=== PATIENT | male | born 1970 | race Caucasian/White ===

== ENCOUNTER 2021-06-27 12:40 | Emergency (ER) | payer MEDICAID ==
[~2021-06-27] VITALS: Ht 175.3 cm; Wt 70.1 kg
--- NOTE | 2021-06-27 13:46 | NUR ---
task rn: report to JUNIOR Garzon to assume care of pt.
[2021-06-27] MEDS ORDERED: HYDROmorphone 2 MG/ML, 1ML ONE ×2 (13:47→16:00)
[2021-06-27] MEDS ORDERED: ONDANSETRON 2MG/ML, 2ML ONE (13:47)
[2021-06-27 13:51] LABS: BASOPHILS % (AUTO) 0 % (0-1); EOSINOPHILS % (AUTO) 1 % (1-7); LYMPHOCYTES % (AUTO) 6 % (22-44); MEAN CORPUSCULAR HEMOGLOBIN 31.1 pg (27.5-34.5); MEAN CORPUSCULAR HGB CONC 33.3 g/dL (33.2-36.2); MONOCYTES % (AUTO) 9 % (2-9); NEUTROPHILS % (AUTO) 84 % (42-75); PLATELET COUNT 318 x10^3/uL (130-400)
[2021-06-27 13:58] LABS: ALANINE AMINOTRANSFERASE 80 U/L (12-78); ALBUMIN 2.3 g/dL (3.4-5.0); ANION GAP 10 mmol/L (5-15); CALCIUM 9.1 mg/dL (8.5-10.1); CHLORIDE 100 mmol/L (98-107); CREATININE 1.57 mg/dL (0.7-1.3)
[2021-06-27] MEDS ORDERED: SODIUM CHLORIDE FLUSH 10ML SYR IVF ONE (14:00)
[2021-06-27] MEDS ORDERED: ONDANSETRON 2MG/ML, 2ML IVPush ONE (14:00)
[2021-06-27] MEDS ORDERED: HYDROmorphone 2 MG/ML, 1ML IV ONE ×2 (14:00→16:00)
--- NOTE | 2021-06-27 14:00 | NUR ---
PIV PLACED, LABS HAVE ALREADY BEEN DRAWN BY INSURANCE ASSISTANT. MEDS ADMIN PER JAN. PT CONNECTED TO MONITORING. CALL LIGHT IN REACH.
[2021-06-27 14:01] LABS: ALKALINE PHOSPHATASE 521 U/L (45-117); BILIRUBIN,TOTAL 0.7 mg/dL (0.2-1.0); TOTAL PROTEIN 8.1 g/dL (6.4-8.2)
[2021-06-27] MEDS ORDERED: OMNIPAQUE 350 MG/ML, 100ML BOTTLE ONE (14:33)
--- NOTE | 2021-06-27 14:47 | NUR ---
ALL RESULTS ARE BACK AT THIS TIME. CHART UP FOR RECHECK.
[2021-06-27 16:27] VITALS: BP 117/66
[2021-07-02] MEDS ORDERED: OXYC-380 PO (15:55)
== END 2021-06-27 16:29 | disposition home or self-care (01) ==
LOC: ED 15:07
DX: C78.7 Secondary malignant neoplasm of liver and intrahepatic bile duct (principal); J45.909 Unspecified asthma, uncomplicated; Z86.39 Personal history of other endocrine, nutritional and metabolic disease; Z85.51 Personal history of malignant neoplasm of bladder
CPT/HCPCS: 36415; 74177; 80053; 83690; 85025; 96374; 96375; 96376; 99285; J1170; J2405; Q9967

== ENCOUNTER 2021-07-02 09:46 | Inpatient (IN) | payer MEDICAID ==
[~2021-07-02] VITALS: Ht 175.3 cm; Wt 75.2 kg
--- NOTE | 2021-07-02 10:06 | NUR ---
THIS IS A 51 YEAR OLD MALE WHO C/O OF SEVERE ABD PAIN, N/V. PT HAS A HX OF LIVER CA, AND BLADDER CA.
[2021-07-02] MEDS ORDERED: HYDROmorphone 2 MG/ML, 1ML ONE ×3 (10:09→14:50)
[2021-07-02] MEDS ORDERED: ONDANSETRON 2MG/ML, 2ML ONE ×2 (10:10→15:13)
--- NOTE | 2021-07-02 10:18 | NUR ---
MEDICATED PER ORDERS, PAIN 08/14
[2021-07-02] MEDS ORDERED: SODIUM CHLORIDE FLUSH 10ML SYR IVF ONE (10:30)
[2021-07-02] MEDS ORDERED: SODIUM CHLORIDE 0.9% 1,000 ML IV ONE (10:30)
[2021-07-02] MEDS ORDERED: ONDANSETRON 2MG/ML, 2ML IVPush ONE (10:30)
[2021-07-02] MEDS ORDERED: HYDROmorphone 1 MG/ML, 1ML INJ IV ONE ×3 (10:30→15:00)
[2021-07-02 10:34] LABS: BASOPHILS % (AUTO) 1 % (0-1); EOSINOPHILS % (AUTO) 4 % (1-7); LYMPHOCYTES % (AUTO) 5 % (22-44); MEAN CORPUSCULAR HEMOGLOBIN 31.3 pg (27.5-34.5); MEAN CORPUSCULAR HGB CONC 33.6 g/dL (33.2-36.2); MEAN PLATELET VOLUME 8.7 fL (7.4-10.4); MONOCYTES % (AUTO) 8 % (2-9); NEUTROPHILS % (AUTO) 82 % (42-75); PLATELET COUNT 337 x10^3/uL (130-400); RED BLOOD COUNT 4.24 x10^6/uL (4.38-5.82); RED CELL DISTRIBUTION WIDTH 14.2 % (9.4-14.8)
[2021-07-02 10:41] LABS: ALANINE AMINOTRANSFERASE 115 U/L (12-78); ALBUMIN 2.3 g/dL (3.4-5.0); ANION GAP 9 mmol/L (5-15); CALCIUM 9.4 mg/dL (8.5-10.1); CHLORIDE 106 mmol/L (98-107)
--- NOTE | 2021-07-02 10:53 | NUR ---
PT STATES PAIN IS NOW 02/12
[2021-07-02 10:55] LABS: ALKALINE PHOSPHATASE 964 U/L (45-117); BILIRUBIN,TOTAL 1.1 mg/dL (0.2-1.0); TOTAL PROTEIN 8.5 g/dL (6.4-8.2)
--- NOTE | 2021-07-02 11:20 | NUR ---
MEDICATED WITH DILAUDID FOR PAIN 08/14
--- NOTE | 2021-07-02 11:55 | NUR ---
PT SLEEPING RESP EVEN AND UNLABORED
--- NOTE | 2021-07-02 12:12 | NUR ---
REPORT TO MARTIN PACHECO, PLAN OF CARE DISCUSSED.
--- NOTE | 2021-07-02 12:13 | NUR ---
RECEIVED REPORT FROM GIL PACHECO. PT LAYING ON GURNEY WITH EYES CLOSED, AWAKENS & RESPONDS APPROP TO STAFF WITH VERBAL STIMULI, NO NEEDS AT THIS TIME, CALL LIGHT WITHIN REACH.
--- NOTE | 2021-07-02 13:02 | NUR ---
PT UPRIGHT ON GURNEY AWAKE WITH C/O PAIN- ERP NOTIFIED, RESPONDS APPROP TO STAFF, NO OTHER NEEDS AT THIS TIME, CALL LIGHT WITHIN REACH.
--- NOTE | 2021-07-02 14:01 | NUR ---
PT REMAINS UPRIGHT ON GURNEY AWAKE WITH C/O PAIN- ERP AWARE BUT NO NEW ORDERS AT THIS TIME, RESPONDS APPROP TO STAFF, NO OTHER NEEDS AT THIS TIME, CALL LIGHT WITHIN REACH.
--- NOTE | 2021-07-02 14:23 | NUR ---
Reagan hernandez in ED - 07/02/21 at 1424 by MARK PT REMAINS UPRIGHT ON GURNEY AWAKE WITH C/O PAIN- ERP AWARE BUT NO NEW ORDERS AT THIS TIME, RESPONDS APPROP TO STAFF, NO OTHER NEEDS AT THIS TIME, CALL LIGHT WITHIN REACH.
--- NOTE | 2021-07-02 15:05 | NUR ---
PT SITTING UP ON GURNEY AWAKE WITH C/O PAIN "BUT STARTING TO COME DOWN"- MEDICATED PER EMAR, RESPONDS APPROP TO STAFF, COMFORT MEAUSRES PROVIDED, CALL LIGHT WITHIN REACH.
--- NOTE | 2021-07-02 15:10 | NUR ---
[facility] AT Addendum: 07/02/21 at 1510 by MARK [facility] AT
[2021-07-02] MEDS ORDERED: KETOROLAC 30 MG/1 ML ONE (15:13)
[2021-07-02] MEDS ORDERED: ONDANSETRON ODT 4 MG PO PRN (15:30)
[2021-07-02] MEDS ORDERED: hydrALAzine 20 MG/ML, 1ML IVPush PRN (15:30)
[2021-07-02] MEDS ORDERED: POLYETHYLENE GLYCOL 17 GM PACKET PO PRN (15:30)
[2021-07-02] MEDS ORDERED: KETOROLAC 30 MG/1 ML IVPush ONE (15:30)
[2021-07-02] MEDS ORDERED: BISACODYL 10 MG SUPP PR PRN (15:30)
[2021-07-02] MEDS ORDERED: PROMETHAZINE 25 MG/ML, 1ML IM PRN (15:30)
[2021-07-02] MEDS ORDERED: SENNA/DOCUSATE TABLET ONE (15:36)
[2021-07-02] MEDS ORDERED: ENOXAPARIN 40 MG/0.4 ML ONE (15:37)
[2021-07-02] MEDS: ONDANSETRON 2MG/ML, 2ML IVPush PRN (15:40)
[2021-07-02] MEDS: ENOXAPARIN 40 MG/0.4 ML SQ SCH (15:40)
[2021-07-02] MEDS: SODIUM CHLORIDE 0.9% 1,000 ML IV SCH ×2 (15:41→23:01)
[2021-07-02] MEDS: HYDROmorphone 2 MG/ML, 1ML IVPush PRN ×4 (15:41→22:24)
[2021-07-02] MEDS ORDERED: ALBU18HF INH (15:55)
[2021-07-02] MEDS ORDERED: ONDA4TAB7 PO (15:55)
[2021-07-02] MEDS ORDERED: SERT100T32 PO (15:55)
[2021-07-02] MEDS ORDERED: OXYC-501 PO (15:55)
[2021-07-02] MEDS ORDERED: FENT1PAT77 TD (15:55)
[2021-07-02] MEDS ORDERED: LEVO75TA5 PO (15:55)
[2021-07-02 16:30] VITALS: BP 127/84
--- NOTE | 2021-07-02 16:53 | NUR ---
Pt to be admitted to [facility], room 448. Report called to
[2021-07-02 17:35] VITALS: BP 127/84
[2021-07-02 20:11] VITALS: BP 118/75
[2021-07-03 00:16] VITALS: BP 155/90
[2021-07-03 00:36] LABS: MICROSCOPIC INDICATED
[2021-07-03] MEDS: HYDROmorphone 2 MG/ML, 1ML IVPush PRN ×8 (01:17→22:16)
[2021-07-03] MEDS: ONDANSETRON 2MG/ML, 2ML IVPush PRN (04:09)
[2021-07-03] MEDS: KETOROLAC 30 MG/1 ML IVPush PRN ×3 (05:05→19:11)
[2021-07-03] MEDS: LEVOTHYROXINE 175 MCG TABLET PO SCH (05:07)
[2021-07-03 05:28] LABS: INTERNATIONAL NORMALIZED RATIO 1.13 (0.93-1.1)
[2021-07-03 05:32] LABS: BASOPHILS % (AUTO) 0 % (0-1); EOSINOPHILS % (AUTO) 3 % (1-7); LYMPHOCYTES % (AUTO) 5 % (22-44); MEAN CORPUSCULAR HEMOGLOBIN 31.4 pg (27.5-34.5); MEAN CORPUSCULAR HGB CONC 33.4 g/dL (33.2-36.2); MEAN PLATELET VOLUME 9.1 fL (7.4-10.4); MONOCYTES % (AUTO) 9 % (2-9); NEUTROPHILS % (AUTO) 82 % (42-75); PLATELET COUNT 307 x10^3/uL (130-400); RED BLOOD COUNT 4.06 x10^6/uL (4.38-5.82); RED CELL DISTRIBUTION WIDTH 14.5 % (9.4-14.8)
[2021-07-03 05:36] LABS: ALBUMIN 1.8 g/dL (3.4-5.0); ANION GAP 6 mmol/L (5-15); CALCIUM 8.3 mg/dL (8.5-10.1); CHLORIDE 109 mmol/L (98-107)
[2021-07-03 05:46] LABS: ALANINE AMINOTRANSFERASE 87 U/L (12-78); ALKALINE PHOSPHATASE 815 U/L (45-117); CHOL/HDL RATIO 3.5; CHOLESTEROL, TOTAL 122 mg/dL (140-239); CREATININE 0.73 mg/dL (0.7-1.3); HDL CHOL % 29 % (26-37); HDL CHOLESTEROL (DIRECT) 35 mg/dL (40-60); LDL CHOLESTEROL,CALCULATED 67 mg/dL (54-169); LDL/HDL RATIO 1.9 (0.5-3.0); TOTAL PROTEIN 7.3 g/dL (6.4-8.2); TRIGLYCERIDES 102 mg/dL (50-200); VLDL CHOLESTEROL 20 mg/dL (0-25)
[2021-07-03 06:30] VITALS: BP 127/79
[2021-07-03] MEDS: SODIUM CHLORIDE 0.9% 1,000 ML IV SCH (06:44)
[2021-07-03] MEDS: SENNA/DOCUSATE TABLET PO SCH (08:57)
[2021-07-03 12:17] VITALS: BP 121/74
[2021-07-03] MEDS: ENOXAPARIN 40 MG/0.4 ML SQ SCH (15:48)
[2021-07-03] MEDS: OXYcodone IR 5MG TABLET PO PRN (15:48)
[2021-07-03] MEDS ORDERED: SERTRALINE 100MG TABLET ONE (16:10)
[2021-07-03] MEDS: SERTRALINE 100MG TABLET PO SCH (16:11)
[2021-07-03 18:44] VITALS: BP 109/67
[2021-07-04] MEDS: HYDROmorphone 2 MG/ML, 1ML IVPush PRN ×6 (01:17→21:45)
[2021-07-04 01:19] VITALS: BP 117/73
[2021-07-04] MEDS: LEVOTHYROXINE 175 MCG TABLET PO SCH (04:21)
[2021-07-04] MEDS: KETOROLAC 30 MG/1 ML IVPush PRN ×2 (04:21→18:14)
[2021-07-04 07:01] VITALS: BP 122/76
[2021-07-04] MEDS: SERTRALINE 100MG TABLET PO SCH (07:50)
[2021-07-04] MEDS: SENNA/DOCUSATE TABLET PO SCH (07:50)
[2021-07-04 12:20] VITALS: BP 108/69
[2021-07-04] MEDS: ENOXAPARIN 40 MG/0.4 ML SQ SCH (15:19)
[2021-07-04] MEDS: OXYcodone IR 5MG TABLET PO PRN (15:20)
[2021-07-04 19:25] VITALS: BP 102/67
[2021-07-04] MEDS: ALBUTEROL HFA 90 MCG/SPRAY INH PRN (23:10)
[2021-07-05] MEDS: HYDROmorphone 2 MG/ML, 1ML IVPush PRN ×8 (01:00→23:57)
[2021-07-05 01:22] VITALS: BP 117/69
[2021-07-05] MEDS: LEVOTHYROXINE 175 MCG TABLET PO SCH (06:00)
[2021-07-05 08:52] VITALS: BP 107/67
[2021-07-05] MEDS: SERTRALINE 100MG TABLET PO SCH (09:08)
[2021-07-05] MEDS: ALBUTEROL HFA 90 MCG/SPRAY INH PRN ×2 (09:08→19:31)
[2021-07-05] MEDS: SENNA/DOCUSATE TABLET PO SCH (09:08)
[2021-07-05] MEDS ORDERED: MIDAZOLAM 1 MG/ML, 5ML ONE ×2 (09:22)
[2021-07-05] MEDS ORDERED: FENTANYL PF 100 MCG/2ML ONE (09:22)
[2021-07-05] MEDS ORDERED: NALOXONE 1 MG/ML, 2ML ONE (09:22)
[2021-07-05] MEDS ORDERED: FLUMAZENIL 0.1 MG/1 ML, 5ML ONE (09:22)
[2021-07-05 14:29] VITALS: BP 114/82
[2021-07-05] MEDS: ENOXAPARIN 40 MG/0.4 ML SQ SCH (16:13)
[2021-07-05 16:43] LABS: BASOPHILS % (AUTO) 1 % (0-1); EOSINOPHILS % (AUTO) 4 % (1-7); LYMPHOCYTES % (AUTO) 8 % (22-44); MEAN CORPUSCULAR HGB CONC 33.2 g/dL (33.2-36.2); MEAN PLATELET VOLUME 8.3 fL (7.4-10.4); MONOCYTES % (AUTO) 10 % (2-9); NEUTROPHILS % (AUTO) 79 % (42-75); PLATELET COUNT 350 x10^3/uL (130-400); RED BLOOD COUNT 3.96 x10^6/uL (4.38-5.82); RED CELL DISTRIBUTION WIDTH 14.7 % (9.4-14.8)
[2021-07-05 16:52] LABS: ALANINE AMINOTRANSFERASE 99 U/L (12-78); ALBUMIN 1.7 g/dL (3.4-5.0); ANION GAP 5 mmol/L (5-15); CALCIUM 8.8 mg/dL (8.5-10.1); CHLORIDE 104 mmol/L (98-107); CREATININE 0.89 mg/dL (0.7-1.3)
[2021-07-05] MEDS ORDERED: SODIUM CHLORIDE 0.9% 500 ML IV ONE (17:00)
[2021-07-05 17:07] LABS: ALKALINE PHOSPHATASE 984 U/L (45-117); BILIRUBIN,TOTAL 0.9 mg/dL (0.2-1.0); TOTAL PROTEIN 7.7 g/dL (6.4-8.2)
[2021-07-05] MEDS: KETOROLAC 30 MG/1 ML IVPush PRN (17:28)
[2021-07-05] MEDS ORDERED: FILTER 0.22 MICRON FOR MANNITOL IV PRN (18:00)
[2021-07-05 18:46] VITALS: BP 114/72
[2021-07-05] MEDS ORDERED: FOSAPREPITANT 150 MG in SODIUM CHLORIDE 0.9% 145 ML IV ONE (19:30)
[2021-07-05] MEDS ORDERED: GRANISETRON 1 MG, DEXAMETHASONE 10 MG in SODIUM CHLORIDE 0.9% 50 ML IV ONE (20:00)
[2021-07-05] MEDS ORDERED: SODIUM CHLORIDE 0.9% IV ONE ×3 (20:30→21:00)
[2021-07-05] MEDS ORDERED: GEMCITABINE HCL IV ONE (20:30)
[2021-07-05] MEDS ORDERED: MAGNESIUM SULFATE IV ONE (21:00)
[2021-07-05] MEDS ORDERED: CISPLATIN IV ONE (21:00)
[2021-07-05] MEDS ORDERED: POTASSIUM CHLORIDE IV ONE (21:00)
[2021-07-05] MEDS ORDERED: MANNITOL IV ONE (21:00)
[2021-07-05] MEDS ORDERED: MANNITOL 25% 12.5 GM in SODIUM CHLORIDE 0.9% 1,000 ML IVPush ONE (23:10)
[2021-07-06 01:15] VITALS: BP 109/66
[2021-07-06] MEDS ORDERED: POTASSIUM CHLORIDE 10 MEQ in SODIUM CHLORIDE 0.9% 1,000 ML IV ONE (01:30)
[2021-07-06] MEDS: HYDROmorphone 2 MG/ML, 1ML IVPush PRN ×3 (03:22→09:30)
[2021-07-06] MEDS: LEVOTHYROXINE 175 MCG TABLET PO SCH (03:57)
[2021-07-06 06:57] VITALS: BP 133/81
[2021-07-06] MEDS: SERTRALINE 100MG TABLET PO SCH (08:36)
[2021-07-06] MEDS: KETOROLAC 30 MG/1 ML IVPush PRN (08:37)
[2021-07-06] MEDS: SENNA/DOCUSATE TABLET PO SCH (08:37)
[2021-07-06] MEDS ORDERED: LEVO75TA5 PO (11:50)
[2021-07-06] MEDS ORDERED: MORP-30 PO (11:50)
[2021-07-06] MEDS ORDERED: POLY17PO5 PO (11:52)
[2021-07-06] MEDS ORDERED: SENN1TAB94 PO (11:52)
[2021-07-06 12:20] VITALS: BP 113/72
[2021-07-06] MEDS ORDERED: ONDA4TAB7 PO (13:35)
[2021-07-06] MEDS ORDERED: OLAN5TAB3 PO (13:35)
[2021-07-06] MEDS ORDERED: PROC10TA78 PO (13:35)
[2021-07-06] MEDS: OXYcodone IR 5MG TABLET PO PRN (14:22)
[2021-07-07] MEDS ORDERED: LEVOTHYROXINE 100 MCG TABLET PO SCH (06:00)
[2021-07-07] MEDS ORDERED: LEVOTHYROXINE 88 MCG TABLET PO SCH (06:00)
== END 2021-07-06 15:37 | disposition home or self-care (01) | DRG 435 ==
LOC: ED 13:47 → EDIP 14:37 → 4NE 16:31 → 4NW 21:43
PROVIDERS: ADMIT Hospitalist; ATTEND Hospitalist
PROC: 0FB13ZX Excision of Right Lobe Liver, Percutaneous Approach, Diagnostic (ICD-10-PCS; principal; 2021-07-05)
DX: C78.7 Secondary malignant neoplasm of liver and intrahepatic bile duct (principal); E43 Unspecified severe protein-calorie malnutrition; C67.9 Malignant neoplasm of bladder, unspecified; E03.9 Hypothyroidism, unspecified; E86.0 Dehydration; F32.9 Major depressive disorder, single episode, unspecified; G89.3 Neoplasm related pain (acute) (chronic); J45.909 Unspecified asthma, uncomplicated; R74.01 Elevation of levels of liver transaminase levels; Z80.0 Family history of malignant neoplasm of digestive organs; Z68.24 Body mass index [BMI] 24.0-24.9, adult; Z85.05 Personal history of malignant neoplasm of liver; Z85.51 Personal history of malignant neoplasm of bladder; Z90.49 Acquired absence of other specified parts of digestive tract
CPT/HCPCS: 36415; 47000; 76700; 77012; 80053; 80061; 81001; 83036; 83690; 83735; 84100; 84443; 85025; 85610; 87077; 87086; 87186; 88307; 88341; 88342; 96374; 96375; 99156; 99157; 99285; G0378; J1100; J1170; J1453; J1650; J1885; J2250; J2405; J3010; J3475; J3480; J9060; Q0162; J1626; J2150; J2310; J7030; J7040; J7050; J9201